=== PATIENT | female | born 1955 | race Caucasian/White ===

== ENCOUNTER 2016-05-09 09:12 | Day surgery (SDC) | payer BC ==
[~2016-05-09] VITALS: Ht 165.1 cm; Wt 65.2 kg
[2016-05-09] VITALS (13 sets, daily range): BP systolic 91–124; BP diastolic 48–80; PULSE 66–91; RESP 15–28; Ht 165.1 cm; Wt 65.2 kg
[~2016-05-09 09:12] MED LIST: CEFAZOLIN 1 GM INJ ONE
[2016-05-09] MEDS ORDERED: AMLO2.5T2 PO (10:26)
[2016-05-09] MEDS ORDERED: LOSA25TA5 PO (10:26)
[2016-05-09] MEDS ORDERED: LEVO25TA59 PO (10:27)
[2016-05-09] MEDS ORDERED: NEOSTIGMINE 3 MG/3 ML SYRINGE ONE (11:10)
[2016-05-09] MEDS ORDERED: ROCURONIUM 50 MG INJ ONE (11:10)
[2016-05-09] MEDS ORDERED: FENTAnyl 50 MCG/ML VIAL ONE (11:10)
[2016-05-09] MEDS ORDERED: LIDOCAINE 2% (SDV) 5 ML INJ ONE (11:10)
[2016-05-09] MEDS ORDERED: GLYCOPYRROLATE 0.4 MG INJ ONE (11:10)
[2016-05-09] MEDS ORDERED: PROPOFOL 20 ML ONE (11:10)
[2016-05-09] MEDS ORDERED: ROPIVACAINE 0.5 % 30 ML VIAL ONE ×3 (11:11→14:17)
[2016-05-09] MEDS ORDERED: LIDOCAINE 2%/EPI 30 ML INJ ONE (11:11)
[2016-05-09] MEDS ORDERED: MIDAZOLAM 1 MG/ML 2 ML INJ ONE (11:11)
--- NOTE | 2016-05-09 11:51 | HPN ---
Date/Time of Note Date/Time of Note DATE: 05/09/16 TIME: 11:51 Interval H&P Admission Note Pt. seen H&P reviewed: No system changes MIMI BELL MD May 09, 2016 11:51
[2016-05-09] MEDS ORDERED: POVIDONE IODINE 10% 28.4 GM OINT ONE ×3 (12:17→14:17)
[2016-05-09] MEDS ORDERED: POLYMYXIN/BACITRACIN 1L IRRIG ONE ×2 (12:18→14:58)
[2016-05-09] MEDS ORDERED: DEXAMETHASONE 4 MG/ML 1 ML INJ ONE (12:25)
[2016-05-09] MEDS ORDERED: ONDANSETRON 4 MG INJ ONE (12:26)
[2016-05-09] MEDS ORDERED: LABETALOL HCL 20MG INJ IV PRN (13:00)
[2016-05-09] MEDS ORDERED: DIPHENHYDRAMINE 50 MG INJ IV PRN (13:00)
[2016-05-09] MEDS ORDERED: ONDANSETRON 4 MG INJ IV PRN ×2 (13:00→16:30)
[2016-05-09] MEDS ORDERED: OXYCODONE/ACETAMINOPHEN (5/325) TAB PO PRN ×3 (13:00→16:30)
[2016-05-09] MEDS ORDERED: morphine (1 MG/ML) 10ML SYRINGE IV PRN ×3 (13:00)
[2016-05-09] MEDS ORDERED: MEPERIDINE 25 MG INJ IV PRN (13:00)
[2016-05-09] MEDS ORDERED: HYDROmorphONE (0.2 MG/ML) 10ML SYG IV PRN ×3 (13:00)
[2016-05-09] MEDS ORDERED: hydrALAzine 20 MG INJ IV PRN (13:00)
[2016-05-09] MEDS ORDERED: FENTAnyl 50 MCG/ML VIAL IV PRN (13:00)
[2016-05-09] MEDS ORDERED: MIDAZOLAM 1 MG/ML 2 ML INJ IV PRN (13:00)
[2016-05-09] MEDS ORDERED: ATROPINE 1 MG/10 ML SYRINGE IV PRN (13:00)
[2016-05-09] MEDS ORDERED: EPHEDrine SULFATE 50 MG/5 ML SYG IV PRN (13:00)
[2016-05-09] MEDS ORDERED: METHYLENE BLUE 10 MG/ML VIAL ONE (13:14)
[2016-05-09] MEDS ORDERED: PROPOFOL 0 ML ONE (13:24)
[2016-05-09] MEDS ORDERED: hydrALAzine 20 MG INJ ONE (14:16)
[2016-05-09] MEDS ORDERED: POLYMYXIN/BACITRACIN 1L IRRIG IRR ONE (14:34)
[2016-05-09] MEDS ORDERED: PROPOFOL 100 ML ONE ×2 (15:17)
[2016-05-09] MEDS ORDERED: SOD CHLORIDE 0.9% 1,000 ML IV SCH (16:25)
[2016-05-09] MEDS: FENTAnyl 50 MCG/ML VIAL IV PRN ×2 (16:27→16:33)
[2016-05-09] MEDS ORDERED: BISACODYL 10 MG SUPP PR PRN (16:30)
[2016-05-09] MEDS ORDERED: CEFAZOLIN 1 GM INJ IV SCH (16:30)
[2016-05-09] MEDS ORDERED: DIPHENHYDRAMINE 25 MG CAP PO PRN (16:30)
[2016-05-09] MEDS ORDERED: morphine 10 MG INJ IV PRN (16:30)
[2016-05-09] MEDS ORDERED: HYDROmorphONE 0.2 MG/ML PCA IV SCH (16:30)
[2016-05-09] MEDS ORDERED: SENNA/DOCUSATE NA (8.6MG/50MG) TAB PO SCH (21:00)
--- NOTE | 2016-05-09 22:26 | OPR ---
DATE OF OPERATION: 05/09/2016 PREOPERATIVE DIAGNOSES: 1. Degenerative joint disease of the right great toe with a bunion. 2. Right 2nd claw toe. POSTOPERATIVE DIAGNOSES: 1. 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 2. Right 2nd claw toe with spurring along the metatarsophalangeal joint and synovitis. OPERATION PERFORMED: 1. Arthrodesis, right great toe MTP joint with two 4.0 AO cannulated screws. 2. Right 2nd MTP tenotomy, capsulotomy with Z lengthening, extensor digitorum longus tendon. 3. Debridement, 2nd MTP joint. 4. Resection arthroplasty of the right 2nd PIP joint with 0.062 threaded pin fixation. 5. Use of fluoroscopy to verify position, alignment of screws and pins in fusion. 6. Short-leg cast. SURGEON: Ant Sanchez MD PUBLIC SCHOOL TEACHER: Tyrone Coppola MD ANESTHESIA: General with a popliteal block. TOURNIQUET TIME: 96 minutes. DESCRIPTION OF PROCEDURE: The patient taken to the operating room, placed in supine position. Satisfactory popliteal block was given. Satisfactory general anesthesia administered. The right foot prepped and draped in usual manner. A dorsomedial incision was made over the great MTP joint after tourniquet was inflated to 250 mmHg. Dissection carried down to subcutaneous tissue. Neurovascular bundles were elevated out of the field. A full-thickness incision was made through the capsule. Capsule was elevated off the proximal phalanx and metatarsal head and neck. Large osteophytes were seen in the proximal phalanx and were resected with a rongeur circumferentially. Large osteophytes were seen on the metatarsal head with areas of grade IV chondromalacia. These were resected with a rongeur as well. The plantar plate was freed up as were the sesamoids. Sequentially larger drill holes were made in the proximal phalanx, and then a bur was used to bur out an appropriate amount of bone until we could put the male portion of the Bosch reamer into the proximal phalanx. Once we could do this properly, the proximal phalanx was well prepared. We irrigated out repeatedly of all debris. We then put the toe in the proper position, marked on the metatarsal head, took an oscillating saw and made rough cuts on the metatarsal head, took off the bone circumferentially , took all the articular cartilage off the metatarsal head. Then with methylene blue, we placed the foot in slight valgus 1 thumb breadth above the flat plane, being careful not to impinge against the 2nd toe. We marked this with repeated use of a saw and then a power rasp. We were able to size it to the point where we could use the female portion of the Bocsh reamer. Female portion of the Bosch reamer was then used, centered in the appropriate position we had marked. When enough bone had been removed, the toe was completely irrigated clear of all debris. The toe was then reduced nicely with excellent bone apposition. Guide pin from the 4.0 AO cannulated screw set was placed from proximal medial to distal lateral and was placed more inferiorly in relation to the superior pin, which will be placed later. Once the pin was checked and with good position, a second 0.045 K-wire was placed temporarily dorsally to stabilize the joint. The pin was then drilled partially, depth gauged, assessed, and then a 4.0 AO cannulated screw was placed obliquely across the joint. Excellent fixation was obtained. The stabilizing pin was removed. A guide pin was placed distal medial to proximal lateral. Repeatedly throughout the pin insertions and screw insertions, we checked AP and lateral radiographs to make sure everything was in the right position. We partially drilled the hole, countersunk the hole and put appropriate 4.0 screw in. Excellent fixation was obtained in the MTP joint. Arthrodesis was very solid. Final AP and lateral radiographs showed good position and alignment of the screws, good position of the toe. Wounds irrigated with antibiotic solution. The capsule was closed with a running 3-0 undyed Vicryl and skin with 5-0 black nylon interrupted. Prior to closing the skin, we did release the tourniquet, and bleeders were coagulated. All bleeding was stopped. Skin was then closed, as mentioned, with 5-0 black nylon interrupted. We then started our attention to the 2nd toe. The 2nd toe was pink. We did a hockey stick incision over the MTP joint and the 2nd interspace, dissection carried down to subcutaneous tissue. The extensor digitorum brevis was cut and portion removed. Extensor digitorum longus was Z lengthened, to be repaired later. The capsule was identified, freed up medially and laterally and opened. There was a lot of synovitis which was debrided. There were also osteophytes on the metatarsal head at the base of the proximal phalanx. This was removed with a rongeur. We felt that the articular surface, although it had some chondromalacia grade II, was not bad enough to resect the base of the proximal phalanx. We then made an elliptical incision along the PIP joint full thickness through the skin and capsule and tendon, released the collateral ligament on the distal portion of the proximal phalanx. Oscillating saw was used to remove just a little bit of bone with the articular surface of the proximal phalanx. We then used a curet and rongeur to remove all the articular surface on the middle phalanx base. A 0.062 threaded K -wire was placed retrograde out the tip of the toe across the DIP joint. We then placed it across the PIP joint, compressed the joint and then put the 2nd toe in slight plantar flexion and valgus, placed it across the MTP joint. Radiographs showed good position of the pin, good reduction. Wounds were then irrigated clear. Z-lengthening was repaired with 6-0 Ethibond with light tension. The skin was then closed with 5-0 black nylon. Portion of the tendon was excised at the PIP joint, and then 5-0 black nylon was used to suture the incision medially and laterally centrally. One 3-0 black nylon was placed centrally through the tendon full thickness, tied over Telfa bolsters. When we were done, the toe was good and pink and well aligned. A pin cap was then placed over the pin. The remaining pin was cut. A saphenous nerve block was done over the medial aspect of the ankle. The wounds were then dressed and compression dressing applied, and then a short leg cast was applied in neutral position. The cast was bent back so there was no pressure on the pin. At the end of the procedure, sponge and needle count was correct. The patient tolerated the procedure well. STOPE MINER ORTHOPEDIC SURGEON: During the procedure, an mental health assistant orthopedic surgeon was used at my request. The mental health assistant helped with inserting the screws while I held the great toe reduced, helped with inserting the pin in the 2nd toe while I held it reduced as well as retracting and manipulating the toes. Without a skilled orthopedic surgeon assisting me, this could not have been done. Therefore, it should be compensated appropriately. Dictated By: ANT LOPEZ/OMID Conf#: [id number] DID#: [id number] MTDD
--- NOTE | 2016-05-10 11:56 | RADRPT ---
PROCEDURE: X-ray fluoroscopy guidance CLINICAL INDICATION: Pain TECHNIQUE: Fluoroscopic guidance was utilized for right foot ORIF. COMPARISON: None available FINDINGS: Fluoroscopic guidance was provided. 0.2 minutes of fluoroscopy time was utilized for the procedure. 4 images obtained during the procedure in progress. Cumulative dose is 0.184 mGy and 0.57048 mGym 2. IMPRESSION: 1. X-ray fluoroscopic guidance, as above. RPTAT: QQ .Ochoa Colindres MD, Date Time Electronically viewed and signed by .Ochoa Colindres MD, on 05/10/2016 11:56 .R/
[2016-05-10] MEDS ORDERED: RIVAROXABAN 10 MG TABLET PO SCH (18:00)
[2016-05-11] MEDS ORDERED: MAGNESIUM HYDROXIDE 30ML CUP PO SCH (21:00)
== END 2016-05-09 18:38 | disposition home or self-care (01) ==
LOC: SDS 09:12
PROVIDERS: ATTEND Orthopaedic Surgery
DX: M21.611 Bunion of right foot (principal); Q66.89 Other specified congenital deformities of feet; M19.071 Primary osteoarthritis, right ankle and foot; M65.871 Other synovitis and tenosynovitis, right ankle and foot; I10 Essential (primary) hypertension; E03.9 Hypothyroidism, unspecified
CPT/HCPCS: 28270; 28750; 73630; C1713; J0360; J0690; J1100; J2175; J2250; J2405; J2710; J2795; J3010